=== PATIENT | male | born 1995 | race Caucasian/White ===

== ENCOUNTER 2021-03-09 11:15 | Emergency (ER) | payer BC, SELFPAY ==
[2021-03-09] VITALS (9 sets, daily range): BP systolic 131–143; BP diastolic 93–98; PULSE 84–102; RESP 14–20; TEMP 36.6; O2SAT 95–98; BMI 20.2
--- NOTE | 2021-03-09 11:33 | XRR_ITS ---
PROCEDURE INFORMATION: Exam: XR Chest Exam date and time: 03/09/2021 11:47 AM Age: 25 years old Clinical indication: Other: Reduced breath sounds TECHNIQUE: Imaging protocol: XR of the chest. Views: 1 view. COMPARISON: CR Chest 2 views* [id number] 10/23/2016 2:08 PM FINDINGS: Lungs: Unremarkable. No consolidation. Pleural spaces: Unremarkable. No pleural effusion. No pneumothorax. Heart/Mediastinum: Unremarkable. No cardiomegaly. Bones/joints: Unremarkable. XR/XR chest 1V portable [id number] IMPRESSION: No acute findings.
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
[2021-03-09] MEDS: iohexol 300 mg/mL 100 mL Btl IV (11:52)
[2021-03-09] MEDS: morphine 4 mg/mL SDV 1 mL 2 MG IVP (12:42)
[2021-03-09] MEDS: ondansetron 2 mg/ML SDV 2 mL 4 MG IVP (12:44)
[2021-03-09] MEDS: sodium chloride 0.9% 1,000 ML 999 ML IV (12:44)
[2021-03-09 13:19] LABS: Basophils % 0.1 %; Hematocrit 45.4 % (42.0-52.0); Hemoglobin 15.6 g/dL (11.7-16.6); Lymphocytes # 0.5 10^3/uL (0.8-4.8); Lymphocytes % 2.6 %; Mean Corpuscular HGB Conc 34.4 g/dL (30.0-36.0); Mean Corpuscular Hemoglobin 33.2 pg (28.0-34.0); Mean Corpuscular Volume 96.6 fL (80-94); Mean Platelet Volume 10.3 fL (7.4-10.4); Monocytes # 1.2 10^3/uL (0.2-0.9); Neutrophils # 18.27 10^3/uL (1.8-7.7); Neutrophils % 90.9 %; Nucleated Red Blood Cells % 0 %; Platelet Count 192 10^3/cmm (130-400); Red Cell Distribution Width 12.6 % (12.1-15.1); White Blood Count 20.1 10^3/uL (4.0-10.0)
[2021-03-09] MEDS: HYDROmorphone 1 mg/mL INJ 1 mL 0.5 MG IVP ×2 (13:30→13:59)
--- NOTE | 2021-03-09 13:41 | PC.NURSE ---
Emergent type O neg blood started at 1340. Blood verified by this nurse with Claus Shetty RN. Unit W [phone], blood band [id number], pt identified and verified. VS taken and as follows: BP 139/98, HR 85, RR 18, 97% SpO2 on room air. Started at 80ml/hr.
--- NOTE | 2021-03-09 13:53 | PC.NURSE ---
Air crew arrived to get pt. No transfusion reaction noted during blood administration. Increased rate to 120 ml/hr.
[2021-03-09 14:16] LABS: Lactic Sepsis W/Reflex 1.1 mmol/L (0.5-2.2)
[2021-03-09 14:17] LABS: Alanine Aminotransferase 97 U/L (0-41); Albumin Level 4.1 g/dL (3.5-5.2); Alkaline Phosphatase 72 IU/L (40-130); Anion Gap 13.8 (5-19); Aspartate Amino Transferase 60 U/L (0-40); Blood Urea Nitrogen 11 mg/dL (6-20); Calcium 8.3 mg/dL (8.5-10.5); Carbon Dioxide 26 mmol/L (22-29); Chloride 100 mmol/L (98-107); Globulin 2.8 g/dL (1.3-4.6); Glomerular Filtration Rate 119.8 mL/min (90-130); Glucose 123 mg/dL (65-115); Osmolality Calculated 283 mOsm/kg (285-295); Potassium 3.8 mmol/L (3.5-5.1); Sodium 136 mmol/L (136-145); Total Bilirubin 1.1 mg/dL (0.15-1.2); Total Protein 6.9 g/dL (6.6-8.7)
[2021-03-09 14:26] LABS: Lipase 1744 U/L (13-60)
== END 2021-03-09 14:03 | disposition short-term general hospital (02) ==
PROVIDERS: Emergency Provider Family Medicine
DX: S36.26 Major laceration of pancreas (principal); S37.022A Major contusion of left kidney, initial encounter; S36.899A Unspecified injury of other intra-abdominal organs, initial encounter; W55.29XA Other contact with cow, initial encounter
CPT/HCPCS: 71045; 74177; 80053; 83605; 83690; 85025; 86850; 86900; 86920; 96361; 96374; 96375; 96376; 99284; 99291; J1170; J2270; J2405; J7030; P9016; Q9967